=== PATIENT | male | born 1965 | race African-American/Black ===

== ENCOUNTER 2016-11-02 11:16 | Emergency (ER) | payer SELFPAY ==
[~2016-11-02] VITALS: Ht 175.3 cm; Wt 134.4 kg
[2016-11-02 15:50] VITALS: BP 172/83
== END 2016-11-02 15:57 | disposition home or self-care (01) ==
LOC: ED 11:16
DX: S93.402A Sprain of unspecified ligament of left ankle, initial encounter (principal); I10 Essential (primary) hypertension; X58.XXXA Exposure to other specified factors, initial encounter; Y93.89 Activity, other specified; Y99.8 Other external cause status; Y92.89 Other specified places as the place of occurrence of the external cause

== ENCOUNTER 2017-06-07 11:27 | Emergency (ER) | payer SELFPAY ==
[~2017-06-07] VITALS: Ht 175.3 cm; Wt 122.5 kg
[2017-06-07 11:47] VITALS: Ht 175.3 cm; Wt 122.5 kg
[2017-06-07 12:44] VITALS: BP 167/89
== END 2017-06-07 12:44 | disposition home or self-care (01) ==
LOC: ED 11:27
DX: M23.91 Unspecified internal derangement of right knee (principal); I10 Essential (primary) hypertension
CPT/HCPCS: J1885

== ENCOUNTER 2018-06-29 16:02 | Emergency (ER) | payer SELFPAY ==
[~2018-06-29] VITALS: Ht 175.3 cm; Wt 133.4 kg
[2018-06-29 17:13] VITALS: Ht 175.3 cm; Wt 133.4 kg
[2018-06-29 19:55] VITALS: BP 186/110
== END 2018-06-29 19:55 | disposition home or self-care (01) ==
LOC: ED 16:02
DX: M72.2 Plantar fascial fibromatosis (principal); I10 Essential (primary) hypertension; E78.00 Pure hypercholesterolemia, unspecified
CPT/HCPCS: Q0092

== ENCOUNTER 2018-07-14 12:27 | Emergency (ER) | payer OTHER ==
[~2018-07-14] VITALS: Ht 175.3 cm; Wt 127.9 kg
[2018-07-14 12:42] VITALS: Ht 175.3 cm; Wt 127.9 kg
[2018-07-14 15:26] VITALS: BP 144/93
== END 2018-07-14 15:26 | disposition home or self-care (01) ==
LOC: ED 12:27
DX: B34.9 Viral infection, unspecified (principal); I10 Essential (primary) hypertension; E78.00 Pure hypercholesterolemia, unspecified
CPT/HCPCS: J7620